=== PATIENT | male | born 1940 | race African-American/Black ===

== ENCOUNTER 2020-09-26 16:39 | Inpatient (IN) | payer OTHER ==
[2020-09-26] MEDS ORDERED: SODIUM CHLORIDE 0.9% 500 ML INFUS.BAG IV ONE ×3 (17:58→20:28)
[2020-09-26 18:58] LABS: BASO % 0.4 % (0-2.0); EOS % 0.1 % (0-4.5); HEMATOCRIT 40.9 % (35.4-49); HEMOGLOBIN 13.9 GM/dL (11.7-16.9); LYMPH % 3.8 % (8-40); MCH 26.4 pg (25.7-33.7); MCHC 33.9 g/dl (32.0-35.9); MEAN PLT VOLUME 8.6 fl (7.5-11.1); MONO % 6.4 % (3.8-10.2); NEUT % 89.3 % (42.8-82.8); PLATELET COUNT 307 K/MM3 (134-434); RBC 5.25 M/mm3 (4.00-5.60); RDW 14.7 % (11.9-15.9)
[2020-09-26 19:01] LABS: VENOUS BASE EXCESS 0.9 mmol/L (-2-2); VENOUS O2 SATURATION 47.1 % (70-80); VENOUS PCO2 38.3 mmHg (38-52); VENOUS PH 7.432 (7.310-7.410)
[2020-09-26 19:17] LABS: INR 1.32 (0.83-1.09); PROTHROMBIN TIME (PATIENT) 15.9 SEC (9.7-13.0)
[2020-09-26 19:18] LABS: CHLORIDE 102 mmol/L (98-107); SODIUM 132 mmol/L (136-145)
[2020-09-26 19:19] LABS: ACTIVATED PTT 32.2 SECONDS (25.2-36.5)
[2020-09-26 19:21] LABS: MAGNESIUM 2.2 mg/dL (1.8-2.4)
[2020-09-26 19:22] LABS: ALBUMIN 2.7 g/dl (3.4-5.0); ANION GAP 8 MMOL/L (8-16); BLOOD UREA NITROGEN 36.7 mg/dL (7-18); CALCIUM 11.1 mg/dL (8.5-10.1); CO2 23 mmol/L (21-32)
[2020-09-26 19:23] LABS: GLUCOSE,RANDOM 91 mg/dL (74-106)
[2020-09-26 19:24] LABS: PHOSPHOROUS 2.9 mg/dL (2.5-4.9)
[2020-09-26 19:25] LABS: SGPT/ALT 34 U/L (13-61)
[2020-09-26 19:25] LABS: URINE APPEARANCE CLEAR; URINE BILIRUBIN 1+ (NEGATIVE); URINE COLOR DK YELLOW; URINE GLUCOSE (UA) NEGATIVE (NEGATIVE); URINE KETONE TRACE (NEGATIVE); URINE LEUK ESTERASE NEGATIVE (NEGATIVE); URINE NITRITE NEGATIVE (NEGATIVE); URINE PROTEIN NEGATIVE (NEGATIVE)
[2020-09-26 19:26] LABS: BILIRUBIN,DIRECT 0.4 mg/dL (0.0-0.2); CREATININE 1.2 mg/dL (0.55-1.3); SGOT/AST 140 U/L (15-37)
[2020-09-26 19:27] LABS: BILIRUBIN,TOTAL 0.7 mg/dL (0.2-1); TOT PROT 7.6 g/dl (6.4-8.2)
[2020-09-26 19:28] LABS: ALK PHOS 329 U/L (45-117)
[2020-09-26 19:34] LABS: LACTIC ACID 3.3 mmol/L (0.4-2.0)
[2020-09-26 20:13] LABS: LDH 377 U/L (87-246)
[2020-09-26 20:14] LABS: HIV INTERPRETATION NEGATIVE (NEGATIVE)
[2020-09-26] MEDS: HEPARIN NA (PORCINE) 5,000 UNITS/ML 1ML VIAL SQ SCH (22:29)
[2020-09-27 04:04] VITALS: BMI 18.0
[2020-09-27] MEDS: HEPARIN NA (PORCINE) 5,000 UNITS/ML 1ML VIAL SQ SCH ×3 (05:38→21:53)
[2020-09-27 09:17] LABS: INR 1.36 (0.83-1.09); PROTHROMBIN TIME (PATIENT) 16.3 SEC (9.7-13.0)
[2020-09-27 09:18] LABS: CALCIUM 10.3 mg/dL (8.5-10.1)
[2020-09-27 09:19] LABS: ACTIVATED PTT 33.1 SECONDS (25.2-36.5); ALBUMIN 2.2 g/dl (3.4-5.0); BLOOD UREA NITROGEN 25.3 mg/dL (7-18)
[2020-09-27 09:22] LABS: CREATININE 0.9 mg/dL (0.55-1.3); PHOSPHOROUS 2.8 mg/dL (2.5-4.9)
[2020-09-27 09:23] LABS: BILIRUBIN,TOTAL 0.7 mg/dL (0.2-1); TOT PROT 6.6 g/dl (6.4-8.2)
[2020-09-27 09:29] LABS: BASO % 0.5 % (0-2.0); EOS % 0.4 % (0-4.5); HEMATOCRIT 37.9 % (35.4-49); HEMOGLOBIN 12.6 GM/dL (11.7-16.9); LYMPH % 5.1 % (8-40); MCH 26.3 pg (25.7-33.7); MCHC 33.2 g/dl (32.0-35.9); MEAN CELL VOLUME 79.1 fl (80-96); MEAN PLT VOLUME 8.7 fl (7.5-11.1); MONO % 8.6 % (3.8-10.2); NEUT % 85.4 % (42.8-82.8); PLATELET COUNT 288 K/MM3 (134-434); RBC 4.78 M/mm3 (4.00-5.60); RDW 15.1 % (11.9-15.9); WHITE BLOOD COUNT 8.1 K/mm3 (4.0-10.0)
[2020-09-27] MEDS ORDERED: FLU VACCINE (FLULAVAL) PF 60 MCG/0.5 ML SYRINGE 2020-2021 IM ONE (10:00)
[2020-09-27] MEDS: POLYETHYLENE GLYCOL 3350 119 GM BTL PO SCH ×2 (12:00→21:53)
[2020-09-27] MEDS: SODIUM CHLORIDE 1,000 ML IV SCH (16:54)
[2020-09-28] MEDS: SODIUM CHLORIDE 1,000 ML IV SCH ×2 (02:12→14:30)
[2020-09-28] MEDS: HEPARIN NA (PORCINE) 5,000 UNITS/ML 1ML VIAL SQ SCH ×3 (05:34→21:26)
[2020-09-28 08:39] LABS: HEMATOCRIT 37.4 % (35.4-49); HEMOGLOBIN 12.5 GM/dL (11.7-16.9); MCH 26.1 pg (25.7-33.7); MCHC 33.5 g/dl (32.0-35.9); MEAN CELL VOLUME 77.9 fl (80-96); MEAN PLT VOLUME 8.5 fl (7.5-11.1); PLATELET COUNT 257 K/MM3 (134-434); RDW 14.7 % (11.9-15.9); WHITE BLOOD COUNT 7.2 K/mm3 (4.0-10.0)
[2020-09-28 09:00] LABS: ALBUMIN 1.9 g/dl (3.4-5.0); CALCIUM 9.6 mg/dL (8.5-10.1)
[2020-09-28 09:01] LABS: BLOOD UREA NITROGEN 24.4 mg/dL (7-18)
[2020-09-28 09:04] LABS: CREATININE 0.7 mg/dL (0.55-1.3)
[2020-09-28 09:05] LABS: BILIRUBIN,TOTAL 1.2 mg/dL (0.2-1); TOT PROT 5.8 g/dl (6.4-8.2)
[2020-09-28] MEDS: POLYETHYLENE GLYCOL 3350 119 GM BTL PO SCH ×2 (09:56→21:26)
[2020-09-28] MEDS ORDERED: POTASSIUM CHLORIDE TABS 20 MEQ TABLET.ER (FP) PO ONE (10:30)
[2020-09-29] MEDS: HEPARIN NA (PORCINE) 5,000 UNITS/ML 1ML VIAL SQ SCH ×3 (05:31→21:58)
[2020-09-29 09:32] LABS: HEMATOCRIT 40.1 % (35.4-49); HEMOGLOBIN 13.1 GM/dL (11.7-16.9); MCHC 32.6 g/dl (32.0-35.9); MEAN CELL VOLUME 79.6 fl (80-96); MEAN PLT VOLUME 8.5 fl (7.5-11.1); PLATELET COUNT 246 K/MM3 (134-434); RBC 5.03 M/mm3 (4.00-5.60); RDW 15.3 % (11.9-15.9)
[2020-09-29] MEDS: POLYETHYLENE GLYCOL 3350 119 GM BTL PO SCH ×2 (09:35→21:57)
[2020-09-29 11:45] LABS: CALCIUM 9.8 mg/dL (8.5-10.1)
[2020-09-29 11:49] LABS: CREATININE 0.7 mg/dL (0.55-1.3)
[2020-09-29 11:51] LABS: BILIRUBIN,TOTAL 1.2 mg/dL (0.2-1); TOT PROT 6.2 g/dl (6.4-8.2)
[2020-09-29] MEDS: SODIUM CHLORIDE 1,000 ML IV SCH (15:02)
[2020-09-30] MEDS: HEPARIN NA (PORCINE) 5,000 UNITS/ML 1ML VIAL SQ SCH ×3 (05:58→21:09)
[2020-09-30] MEDS ORDERED: POLYETHYLENE GLYCOL 3350 119 GM BTL PO PRN (07:55)
[2020-09-30 09:27] LABS: BASO % 0.7 % (0-2.0); EOS % 0.4 % (0-4.5); HEMATOCRIT 37.4 % (35.4-49); HEMOGLOBIN 12.8 GM/dL (11.7-16.9); LYMPH % 7.1 % (8-40); MCH 26.7 pg (25.7-33.7); MCHC 34.3 g/dl (32.0-35.9); MEAN CELL VOLUME 77.9 fl (80-96); MEAN PLT VOLUME 8.5 fl (7.5-11.1); MONO % 10.6 % (3.8-10.2); NEUT % 81.2 % (42.8-82.8); PLATELET COUNT 276 K/MM3 (134-434); RDW 14.9 % (11.9-15.9); WHITE BLOOD COUNT 9.6 K/mm3 (4.0-10.0)
[2020-09-30 09:50] LABS: BLOOD UREA NITROGEN 23.5 mg/dL (7-18); CALCIUM 9.6 mg/dL (8.5-10.1)
[2020-09-30 09:53] LABS: CREATININE 0.8 mg/dL (0.55-1.3)
[2020-09-30 09:55] LABS: BILIRUBIN,TOTAL 0.9 mg/dL (0.2-1); TOT PROT 6.3 g/dl (6.4-8.2)
[2020-09-30] MEDS: SODIUM CHLORIDE 1,000 ML IV SCH ×2 (15:11→23:55)
[2020-10-01] MEDS: HEPARIN NA (PORCINE) 5,000 UNITS/ML 1ML VIAL SQ SCH ×3 (05:49→21:48)
[2020-10-01 08:56] LABS: BASO % 0.5 % (0-2.0); EOS % 0.5 % (0-4.5); HEMATOCRIT 36.9 % (35.4-49); HEMOGLOBIN 12.5 GM/dL (11.7-16.9); LYMPH % 5.8 % (8-40); MCH 26.7 pg (25.7-33.7); MCHC 33.9 g/dl (32.0-35.9); MEAN CELL VOLUME 78.8 fl (80-96); MEAN PLT VOLUME 8.6 fl (7.5-11.1); MONO % 11.2 % (3.8-10.2); PLATELET COUNT 230 K/MM3 (134-434); RBC 4.68 M/mm3 (4.00-5.60); RDW 15.2 % (11.9-15.9); WHITE BLOOD COUNT 10.1 K/mm3 (4.0-10.0)
[2020-10-01 09:24] LABS: ALBUMIN 1.9 g/dl (3.4-5.0); BLOOD UREA NITROGEN 20.4 mg/dL (7-18); CALCIUM 9.4 mg/dL (8.5-10.1)
[2020-10-01 09:28] LABS: CREATININE 0.7 mg/dL (0.55-1.3)
[2020-10-01 09:29] LABS: BILIRUBIN,TOTAL 0.9 mg/dL (0.2-1); TOT PROT 6.3 g/dl (6.4-8.2)
[2020-10-01 16:25] LABS: BF WBC & OTHER NUCLEATED CELLS 61 /mm3
[2020-10-01] MEDS: SODIUM CHLORIDE 1,000 ML IV SCH (16:58)
[2020-10-01 18:14] LABS: BODY FLUID MACROPHAGES 40 %; BODY FLUID MONOCYTE 9 %
[2020-10-02 09:19] LABS: HEMATOCRIT 38.6 % (35.4-49); HEMOGLOBIN 12.7 GM/dL (11.7-16.9); MCH 26.2 pg (25.7-33.7); MCHC 32.9 g/dl (32.0-35.9); MEAN CELL VOLUME 79.7 fl (80-96); MEAN PLT VOLUME 8.7 fl (7.5-11.1); PLATELET COUNT 221 K/MM3 (134-434); RBC 4.84 M/mm3 (4.00-5.60); RDW 15.5 % (11.9-15.9); WHITE BLOOD COUNT 10.6 K/mm3 (4.0-10.0)
[2020-10-02 09:35] LABS: ALBUMIN 1.9 g/dl (3.4-5.0); BLOOD UREA NITROGEN 20.9 mg/dL (7-18)
[2020-10-02 09:38] LABS: CREATININE 0.8 mg/dL (0.55-1.3)
[2020-10-02 09:39] LABS: BILIRUBIN,TOTAL 1.2 mg/dL (0.2-1)
[2020-10-02 09:40] LABS: TOT PROT 6.3 g/dl (6.4-8.2)
[2020-10-02] MEDS: HEPARIN NA (PORCINE) 5,000 UNITS/ML 1ML VIAL SQ SCH ×3 (14:21→21:19)
[2020-10-03] MEDS: HEPARIN NA (PORCINE) 5,000 UNITS/ML 1ML VIAL SQ SCH ×3 (06:58→22:18)
[2020-10-03 10:34] LABS: BLOOD UREA NITROGEN 19.5 mg/dL (7-18); CALCIUM 10.1 mg/dL (8.5-10.1)
[2020-10-03 10:37] LABS: CREATININE 0.7 mg/dL (0.55-1.3)
[2020-10-04 08:50] LABS: BASO % 0.6 % (0-2.0); EOS % 0.4 % (0-4.5); HEMOGLOBIN 11.4 GM/dL (11.7-16.9); LYMPH % 5.4 % (8-40); MCH 26.2 pg (25.7-33.7); MCHC 33.4 g/dl (32.0-35.9); MEAN CELL VOLUME 78.4 fl (80-96); MEAN PLT VOLUME 8.6 fl (7.5-11.1); MONO % 10.9 % (3.8-10.2); NEUT % 82.7 % (42.8-82.8); PLATELET COUNT 219 K/MM3 (134-434); RBC 4.34 M/mm3 (4.00-5.60); RDW 16.2 % (11.9-15.9); WHITE BLOOD COUNT 10.8 K/mm3 (4.0-10.0)
[2020-10-04 09:04] LABS: CALCIUM 10.1 mg/dL (8.5-10.1)
[2020-10-04 09:05] LABS: BLOOD UREA NITROGEN 19.6 mg/dL (7-18)
[2020-10-04 09:08] LABS: CREATININE 0.7 mg/dL (0.55-1.3)
[2020-10-05 11:08] VITALS: TEMP 97.7
[2020-10-05 15:29] VITALS: BP 117/70; PULSE 108
== END 2020-10-05 16:57 | DRG 435 ==
LOC: JER 16:39 → JERBED 20:23 → J5S 09-27 00:14 → UNDODISIN 10-04 11:55
PROVIDERS: ADMIT Internal Medicine; ATTEND Internal Medicine
PROC: 0W993ZX Drainage of Right Pleural Cavity, Percutaneous Approach, Diagnostic (ICD-10-PCS; principal; 2020-10-01)
PROC: 0FB23ZX Excision of Left Lobe Liver, Percutaneous Approach, Diagnostic (ICD-10-PCS; 2020-10-01)
DX: C22.8 Malignant neoplasm of liver, primary, unspecified as to type (principal); E43 Unspecified severe protein-calorie malnutrition; R64 Cachexia; Z68.1 Body mass index [BMI] 19.9 or less, adult; E87.2 Acidosis; E87.1 Hypo-osmolality and hyponatremia; E46 Unspecified protein-calorie malnutrition; J91.0 Malignant pleural effusion; I10 Essential (primary) hypertension; R62.7 Adult failure to thrive; R09.02 Hypoxemia; E83.52 Hypercalcemia; R00.0 Tachycardia, unspecified; E86.0 Dehydration; E27.9 Disorder of adrenal gland, unspecified; B19.20 Unspecified viral hepatitis C without hepatic coma; E78.5 Hyperlipidemia, unspecified; G25.81 Restless legs syndrome; R53.1 Weakness
CPT/HCPCS: 36415; 71045-TC-FY; 71250-TC; 74160-TC; 74176-TC; 76705-TC; 76942; 76942-TC; 80048; 80053; 80074; 81003; 82042; 82105; 82150; 82248; 82465; 82550; 82728; 82803; 82945; 83605; 83615; 83690; 83735; 83986; 84100; 84157; 84439; 84443; 84478; 84481; 84484; 85025; 85027; 85610; 85730; 86140; 86301; 87040; 87070; 87075; 87086; 87102; 87116; 87205; 87206; 87210; 87389; 87804; 87899; 88108; 88305-TC; 93005; 93010; 94761; 97116-GP; 97161-GP; 99285-25; C9803; G0008; J1644; Q2036; Q9967; U0003; U0005